=== PATIENT | male | born 1990 | race Hispanic/Latino ===

== ENCOUNTER 2018-11-26 20:07 | Emergency (ER) | payer OTHER ==
[2018-11-26 20:07] VITALS: BMI 23.6
[2018-11-26 20:17] VITALS: BP 110/66; PULSE 70; RESP 14; TEMP 97.8; O2SAT 96
--- NOTE | 2018-11-26 20:39 | C.PDOC ---
History Of Present Illness 28 y/o male presents to the ED requesting detox from heroin, benzos, and cocaine. Last use was just prior to arrival. Patient denies having any active complaints. No suicidal or homicidal ideation. Patient is resting comfortably, answering questions with slightly slurred speech. Time Seen by Provider: 11/26/18 20:21 Chief Complaint (Nursing): Substance Abuse History Per: Patient History/Exam Limitations: no limitations Onset/Duration Of Symptoms: Hrs Current Symptoms Are (Timing): Still Present Modifying Factor(s): Narcotics, Cocaine Associated Symptoms: denies: Suicidal Thoughts, Suicidal Plan Past Medical History Reviewed: Historical Data, Nursing Documentation, Vital Signs Vital Signs: Last Vital Signs Temp 97.8 F 11/26/18 20:11 Pulse 70 11/26/18 20:11 Resp 14 11/26/18 20:11 BP 110/66 11/26/18 20:11 Pulse Ox 96 11/26/18 20:11 - Medical History PMH: Denies: Diabetes, Hepatitis, HIV, HTN, Seizures, Sexually Transmitted Disease - [facility] Procedures DETOXIFICATION SERVICES FOR SUBSTANCE ABUSE TREATMENT (01/13/18) INDIV PSYCHOTHERAPY FOR SUBSTANCE ABUSE TREATMENT, SUPPORT (10/24/17) INDIV PSYCHOTHERAPY FOR SUBSTANCE ABUSE, COGNITIV BEHAVIORAL (10/24/17) INDIV PSYCHOTHERAPY FOR SUBSTANCE ABUSE, MOTIVATION ENHANCE (10/24/17) Family History: States: Unknown Family Hx - Social History Hx Alcohol Use: No Hx Substance Use: Yes - Immunization History Hx Tetanus Toxoid Vaccination: Yes Hx Influenza Vaccination: No Hx Pneumococcal Vaccination: No Review Of Systems Constitutional: Negative for: Fever Cardiovascular: Negative for: Chest Pain Respiratory: Negative for: Shortness of Breath Gastrointestinal: Negative for: Vomiting Psych: Positive for: Other (Substance abuse). Negative for: Suicidal ideation, Withdrawal Physical Exam - Physical Exam Appears: Non-toxic, No Acute Distress, Other (Appears intoxicated) Skin: Warm, Dry, No Rash Head: Atraumatic, Normacephalic Eye(s): bilateral: Normal Inspection, PERRL, EOMI Oral Mucosa: Moist Neck: Normal ROM Chest: Symmetrical Cardiovascular: Rhythm Regular, No Murmur Respiratory: Normal Breath Sounds, No Accessory Muscle Use Extremity: Bilateral: Atraumatic, Normal Color And Temperature, Normal ROM Neurological/Psych: Oriented x3, Other (Answering questions, mildly slurred speech) Gait: Steady ED Course And Treatment O2 Sat by Pulse Oximetry: 96 (RA) Pulse Ox Interpretation: Normal Progress Note: Discussed with turf farm worker, no detox beds are available tonight however beds will open up tomorrow. Patient is agreeable to return tomorrow for detox, and complete prescreening tonight. 8:35pm artificial marble worker notes that patient took a pocket knife out during her interview. Security called to bedside for safety during the interview. 8:42pm artificial marble worker reports that patient became upset when asked to put knife away. Patient is cursing, yelling he wants to leave. Patient is ambulatory with steady gait, will discharge home. Advised patient to return for detox. Disposition - Disposition Disposition: HOME/ ROUTINE Disposition Time: 20:43 Condition: STABLE Instructions: Drug Abuse and Drug Addiction (DC) Forms: [email or web address] (Arabic) - Clinical Impression Clinical Impression: Drug abuse - PA / INSULATION SUPERVISOR / Resident Statement MD/DO has reviewed & agrees with the documentation as recorded. - Scribe Statement The provider has reviewed the documentation as recorded by the Scribaman Mccallum All medical record entries made by the Alvaibaman were at my direction and personally dictated by me. I have reviewed the chart and agree that the record accurately reflects my personal performance of the history, physical exam, medical decision making, and the department course for this patient. I have also personally directed, reviewed, and agree with the discharge instructions and disposition.
== END 2018-11-26 20:58 | disposition home or self-care (01) ==
LOC: C.ER 20:07
DX: F19.10 Other psychoactive substance abuse, uncomplicated (principal)